=== PATIENT | male | born 1940 | race Caucasian/White ===

== ENCOUNTER 2023-12-11 16:50 | Outpatient (CLI) | payer MEDICARE, OTHER | END 2023-12-11 23:59 | disposition critical access hospital (66) | LOC: EMS 16:50 | DX: Z03.89 Encounter for observation for other suspected diseases and conditions ruled out (principal); W05.0XXA Fall from non-moving wheelchair, initial encounter; Y92.122 Bedroom in nursing home as the place of occurrence of the external cause; Z79.01 Long term (current) use of anticoagulants; F03.90 Unspecified dementia, unspecified severity, without behavioral disturbance, psychotic disturbance, mood disturbance, and anxiety | CPT/HCPCS: A0425; A0429 ==

== ENCOUNTER 2023-12-11 16:56 | Emergency (ER) | payer MEDICARE, OTHER ==
--- NOTE | 2023-12-11 17:13 | ED Physician Documentation ---
PD HPI Fall - Stated complaint Stated Complaint: GLF - History obtained from History obtained from: Patient, EMS (alert enroute without complaint.) - History of Present Illness Mechanism of injury: Lost balance (He states he was in his chair and a piece of food dropped. He leaned forward from his chair to pick it up, lost balance and fell forward from sitting. Apparently struck his head. No loss of consciousness. He is on blood thinners. No neck pain and came in without collar.) Fall distance: Sitting position Where injury occurred: Other (SNF) Injury(ies) location: Head (he was noted to strike forehead as he rolling fell to floor. No LOC. Denies headache, neck pain. Is on DOAC so facility felt he should get checked out.). No: Neck (arrives without cervical collar.) Pain level max: 2 Pain level now: 0 Quality of pain: Aching Associated symptoms: No: LOC, AMS Contributing factors: Anticoagulated PD PAST MEDICAL HISTORY - Present Medications Home Medications: Ambulatory Orders Medication Instructions Recorded Confirmed Acetaminophen [Tylenol] 1,000 mg PO Q6HR PRN 12/11/23 12/11/23 Apixaban [Eliquis] 2.5 mg PO BID 12/11/23 12/11/23 Ascorbic Acid 500 mg PO DAILY 12/11/23 12/11/23 Atorvastatin Calcium [Lipitor] 80 mg PO HS 12/11/23 12/11/23 Bisacodyl Supp [Dulcolax Supp] 10 mg [place] DAILY PRN 12/11/23 12/11/23 Bumetanide 2 mg PO PRN PRN 12/11/23 12/11/23 Cyanocobalamin [Vitamin B-12] 500 mcg PO DAILY 12/11/23 12/11/23 Lidocaine Patch 4% [Lidocaine Pain 1 patch TOP DAILY PRN 12/11/23 12/11/23 Relief] Metoprolol Succinate [Toprol Xl] 50 mg PO DAILY 12/11/23 12/11/23 Mineral Oil [Mineral Oil Enema] 1 ea RC DAILY PRN 12/11/23 12/11/23 Multivitamin 1 each PO DAILY 12/11/23 12/11/23 Ondansetron Odt [Zofran Odt] 4 mg TL Q8HR PRN 12/11/23 12/11/23 Rivastigmine [Rivastigmine 4.6MG] 1 each TD DAILY 12/11/23 12/11/23 Senna [Senokot] 17.2 mg PO DAILY PRN 12/11/23 12/11/23 Vibegron [Gemtesa] 75 mg PO DAILY 12/11/23 12/11/23 methocarbamoL [Methocarbamol] 500 mg PO Q6HR PRN 12/11/23 12/11/23 polyethylene glycoL 3350 [Miralax] 17 gm PO DAILY PRN 12/11/23 12/11/23 traMADol [Ultram] 100 mg PO Q6H 12/11/23 12/11/23 - Allergies Allergies/Adverse Reactions: Allergies Allergy/AdvReac Type Severity Reaction Status Date / Time ibuprofen Allergy Hives Verified 12/11/23 17:15 PD ED PE NORMAL - Vitals Vital signs reviewed: Yes - General General: No acute distress, Well developed/nourished. No: Alert and oriented X 3 (person and place, just not sure on date. Fully conversant.) - HEENT HEENT: Other (mild tender left foreahead without bruising nor swelling. ) - Neck Neck: Supple, no meningeal sign, No bony TTP, No adenopathy - Abdomen Abdomen: Soft, Non tender - Derm Derm: Normal color, Warm and dry - Extremities Extremities: No tenderness to palpate, Normal ROM s pain, No edema Results - Vitals Vitals: Oxygen O2 Source Room air - Rads (name of study) head CT Relevant Findings:: Prelim report reviewed, EMP independent interpretation of test (no ICH) PD Medical Decision Making - ED course Complexity details: reviewed results, considered differential (fall from sitting as he leaned over to pickler helper something that he dropped. Rolled fall foreard, struck forehead. Some pain initially in forehead, non now. No neck pain nor neuro symptoms. ), d/w patient Departure - Departure Disposition: 01 Home, Self Care Clinical Impression: Fall from chair, initial encounter, Anticoagulant long-term use Head contusion Qualifiers: Encounter type: initial encounter Contusion of head detail: unspecified part of head Qualified Code(s): S00.93XA - Contusion of unspecified part of head, initial encounter Condition: Stable Record reviewed to determine appropriate education?: Yes Comments: Your head CT does not show any signs of bleeding. You appear well without other obvious injuries. Tylenol every 4-6 hours if needed for pains. Continue usual medications. Forms: PCP List Discharge Date/Time: 12/11/23 19:14
--- NOTE | 2023-12-11 17:54 | CT Report ---
PROCEDURE: Head WO INDICATIONS: fall, struck forehead, on antiplatelet med TECHNIQUE: Noncontrast 4.5 mm thick angled axial sections acquired from the foramen magnum to the vertex. For r adiation dose reduction, the following was used: automated exposure control, adjustment of mA and/or kV according to patient size. COMPARISON: None. FINDINGS: Image quality: Excellent. CSF spaces: Basal cisterns are patent. No extra-axial fluid collections. Ventricles are normal in size and shape. Brain: There is diffuse global atrophy with compensatory enlargement of the CSF spaces. No midline s hift. No intracranial masses or hemorrhage. Lockhart-white matter interface is normal. 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 A chronic right internal capsule lacunar infarct is present. Skull and face: Calvarium and visualized facial bones are intact, withou t suspicious lesions. Sinuses: Visualized sinuses and mastoids are clear. IMPRESSION: No acute intracranial pathology. Reviewed by: Mary Kay Michelle MD on 12/11/2023 4:53 PM YOL[facility] Approved by: Mary Kay Michelle MD on 12/11/2023 4:53 PM YOLIS Station ID: [id number]
[2023-12-11 18:00] VITALS: BP 166/74; O2SAT 99
== END 2023-12-11 19:14 | disposition home or self-care (01) ==
LOC: ED 16:56
DX: S00.93XA Contusion of unspecified part of head, initial encounter (principal); W07.XXXA Fall from chair, initial encounter; Z79.01 Long term (current) use of anticoagulants; Z79.899 Other long term (current) drug therapy
CPT/HCPCS: 99284

== ENCOUNTER 2023-12-11 18:59 | Outpatient (CLI) | payer MEDICARE, OTHER | END 2023-12-11 23:59 | LOC: EMS 18:59 | PROVIDERS: ATTEND Emergency Medicine | DX: R53.1 Weakness (principal); F03.90 Unspecified dementia, unspecified severity, without behavioral disturbance, psychotic disturbance, mood disturbance, and anxiety; Z91.81 History of falling; Z79.01 Long term (current) use of anticoagulants | CPT/HCPCS: A0425; A0428 ==

== ENCOUNTER 2023-12-16 18:37 | Outpatient (CLI) | payer MEDICARE, OTHER | END 2023-12-16 18:38 | disposition EMS.NT | LOC: EMS 18:37 | DX: Z03.89 Encounter for observation for other suspected diseases and conditions ruled out (principal); W07.XXXA Fall from chair, initial encounter; Y92.098 Other place in other non-institutional residence as the place of occurrence of the external cause; Z79.01 Long term (current) use of anticoagulants ==

== ENCOUNTER 2023-12-26 08:00 | Outpatient (CLI) | payer MEDICARE, OTHER ==
[2023-12-26 13:56] LABS: BILIRUBIN,URINE NEGATIVE (NEGATIVE); GLUCOSE, URINE (UA) NEGATIVE (NEGATIVE); KETONES,URINE (UA) NEGATIVE (NEGATIVE); LEUKOCYTE ESTERASE, URINE NEGATIVE (NEGATIVE); NITRITE,URINE NEGATIVE (NEGATIVE); OCCULT BLOOD,URINE TRACE-LYSE (NEGATIVE); PROTEIN,URINE TRACE mg/dL (NEGATIVE); UROBILINOGEN,URINE 0.2 (NORMAL) E.U./dL (NORMAL)
[2023-12-26 14:07] LABS: BACTERIA,URINE None Seen /HPF (None Seen); CLARITY,URINE CLEAR (CLEAR); SQUAMOUS EPITHELIAL CELL,UR FEW Squamous (<= Few); WBC,URINE 0-3 /HPF (0-3)
== END 2023-12-26 23:59 | disposition home or self-care (01) ==
LOC: LAB.R 08:00
PROVIDERS: ATTEND Family Medicine
DX: N39.0 Urinary tract infection, site not specified (principal)
CPT/HCPCS: 81001; 87086